=== PATIENT | male | born 1995 | race American Indian/Alaskan Native ===

== ENCOUNTER 2019-08-16 20:11 | Emergency (ER) | payer MEDICAID ==
[2019-08-16] MEDS ORDERED: SODIUM CHLORIDE 0.9% 1000 ML 1,000 ML IV ONE (20:39)
[2019-08-16] MEDS ORDERED: ONDANSETRON 4 MG/2 ML INJ IV ONE (20:39)
[2019-08-16] MEDS ORDERED: diphenhydrAMINE 50 MG/ML VIAL IV ONE (20:58)
[2019-08-16 21:03] LABS: Basophils % (Auto) 0.6 % (0.0-1.8); Eosinophils % (Auto) 0.2 % (0.0-4.3); Hematocrit 44.1 % (35.5-45.6); Hemoglobin 14.3 gm/dl (11.8-15.2); Lymphocytes # (Auto) 0.9 K/mm3 (1.2-5.4); Lymphocytes % (Auto) 13.5 % (13.4-35.0); Mean Corpuscular HGB Conc 33 % (32-34); Mean Corpuscular Volume 82 fl (84-94); Monocytes # (Auto) 0.9 K/mm3 (0.0-0.8); Monocytes % (Auto) 14.2 % (0.0-7.3); Platelet Count 257 K/mm3 (140-440); Red Blood Count 5.36 M/mm3 (3.65-5.03); Red Cell Distribution Width 15.7 % (13.2-15.2)
[2019-08-16 21:38] LABS: Alanine Aminotransferase 20 units/L (7-56); Albumin 4.9 g/dL (3.9-5); BUN/Creatinine Ratio 19; Blood Urea Nitrogen 21 mg/dL (9-20); Hemolysis Index 34
--- NOTE | 2019-08-16 21:46 | Emergency Department Report ---
ED General Adult HPI - General Chief complaint: Nausea/Vomiting/Diarrhea Stated complaint: N/V Time Seen by Provider: 08/16/19 20:32 Source: EMS Mode of arrival: Ambulatory Limitations: No Limitations - History of Present Illness Initial comments: Patient presents to the emergency department with a chief complaint of acute nausea and vomiting. Patient has autism and is nonverbal and not communicable. Per the [facility] staff the patient began to have some vomiting this evening. There has been no diarrhea. -: Sudden Severity scale (0 -10): 0 Consistency: constant Improves with: none Worsens with: none Associated Symptoms: denies other symptoms Treatments Prior to Arrival: none - Related Data Previous Rx's Medication Instructions Recorded Last Taken Type Ondansetron [Zofran Odt] 4 mg PO Q4HR PRN #20 tab.rapdis 08/16/19 Unknown Rx Allergies Allergy/AdvReac Type Severity Reaction Status Date / Time No Known Allergies Allergy Verified 08/16/19 20:38 ED Review of Systems ROS: Stated complaint: N/V Other details as noted in HPI Comment: Unobtainable due to pts medical conditions (Not able to assess due to the patient's pre-existing medical condition) ED Past Medical Hx - Past Medical History Previous Medical History?: Yes Additional medical history: Autism. Nonverbal - Surgical History Past Surgical History?: No - Social History Smoking Status: Never Smoker Substance Use Type: None - Medications Home Medications: Home Medications Medication Instructions Recorded Confirmed Last Taken Type Ondansetron [Zofran Odt] 4 mg PO Q4HR PRN #20 tab.rapdis 08/16/19 Unknown Rx ED Physical Exam - General Limitations: No Limitations General appearance: alert, in no apparent distress - Head Head exam: Present: atraumatic, normocephalic - Eye Eye exam: Present: normal appearance, PERRL, EOMI - ENT ENT exam: Present: mucous membranes moist - Neck Neck exam: Present: normal inspection - Respiratory Respiratory exam: Present: normal lung sounds bilaterally. Absent: respiratory distress - Cardiovascular Cardiovascular Exam: Present: normal rhythm, tachycardia. Absent: systolic murmur, diastolic murmur, rubs, gallop - GI/Abdominal GI/Abdominal exam: Present: soft, normal bowel sounds. Absent: distended, tenderness - Rectal Rectal exam: Present: deferred - Extremities Exam Extremities exam: Present: normal inspection - Back Exam Back exam: Present: normal inspection - Neurological Exam Neurological exam: Present: alert, CN II-XII intact. Absent: motor sensory deficit - Psychiatric Psychiatric exam: Present: normal affect, normal mood - Skin Skin exam: Present: warm, dry, intact, normal color. Absent: rash ED Course Vital Signs 08/16/19 08/16/19 08/16/19 20:32 20:33 21:51 Temperature 98.2 F 98.2 F Pulse Rate 114 H 114 H 114 H Respiratory 16 16 18 Rate Blood Pressure 117/76 117/76 Blood Pressure 109/65 [Right] O2 Sat by Pulse 97 97 97 Oximetry ED Medical Decision Making - Lab Data Result diagrams: 08/16/19 Unknown 08/16/19 Unknown Lab Results 08/16/19 08/16/19 Range/Units Unknown Unknown WBC 6.7 (4.5-11.0) K/mm3 RBC 5.36 H (3.65-5.03) M/mm3 Hgb 14.3 (11.8-15.2) gm/dl Hct 44.1 (35.5-45.6) % MCV 82 L (84-94) fl MCH 27 L (28-32) pg MCHC 33 (32-34) % RDW 15.7 H (13.2-15.2) % Plt Count 257 (140-440) K/mm3 Lymph % (Auto) 13.5 (13.4-35.0) % Divide % (Auto) 14.2 H (0.0-7.3) % Eos % (Auto) 0.2 (0.0-4.3) % Baso % (Auto) 0.6 (0.0-1.8) % Lymph # 0.9 L (1.2-5.4) K/mm3 Divide # 0.9 H (0.0-0.8) K/mm3 Eos # 0.0 (0.0-0.4) K/mm3 Baso # 0.0 (0.0-0.1) K/mm3 Seg Neutrophils % 71.5 H (40.0-70.0) % Seg Neutrophils # 4.8 (1.8-7.7) K/mm3 Sodium 143 (137-145) mmol/L Potassium 4.4 (3.6-5.0) mmol/L Chloride 98.9 (98-107) mmol/L Carbon Dioxide 28 (22-30) mmol/L Anion Gap 21 mmol/L BUN 21 H (9-20) mg/dL Creatinine 1.1 (0.8-1.5) mg/dL Estimated GFR > 60 ml/min BUN/Creatinine Ratio 19 % Glucose 103 H (75-100) mg/dL Calcium 10.0 (8.4-10.2) mg/dL Total Bilirubin 0.30 (0.1-1.2) mg/dL AST 24 (5-40) units/L ALT 20 (7-56) units/L Alkaline Phosphatase 80 (35-129) units/L Total Protein 9.1 H (6.3-8.2) g/dL Albumin 4.9 (3.9-5) g/dL Albumin/Globulin Ratio 1.2 % - Radiology Data Radiology results: image reviewed - Medical Decision Making IV fluids and IV Zofran given Critical care attestation.: If time is entered above; I have spent that time in minutes in the direct care of this critically ill patient, excluding procedure time. ED Disposition Clinical Impression: Nausea & vomiting Disposition: DC-01 TO HOME OR SELFCARE Is pt being admited?: No Does the pt Need Aspirin: No Condition: Stable Instructions: Acute Nausea and Vomiting (ED) Additional Instructions: return if worse Referrals: PRIMARY CARE, [Primary Care Provider] - 3-5 Days [facility] [Provider Group] - 3-5 Days [facility] [Provider Group] - 3-5 Days Time of Disposition: 22:14
[2019-08-16 21:52] VITALS: BP 109/65
--- NOTE | 2019-08-16 22:18 | XRay Report ---
ABDOMEN 2 VIEW(S) WITH CHEST RADIOGRAPH INDICATION / CLINICAL INFORMATION: abdominal pain. COMPARISON: None available. FINDINGS: TUBES / LINES: None. BOWEL GAS PATTERN: Gaseous distention of portions of the colon. No definite abnormal distention or di latation in the small bowel. Most of the bowel gas is to the left of midline. FREE AIR / EXTRALUMINAL GAS: None seen. LUNGS: Visualized lungs show no significant abnormality. IMPRESSION: No radiographic evidence to suggest obstruction. Predominance of bowel gas in the left upper quadrant is noted, a nonspecific finding. This could be due to paucity of gas in the intestines of the right side of the abdomen or mass effect shifting the intestines into the left midabdomen, such as from an underlying mass or fluid collection. If this is of clinical concern, further evaluation with a contra st-enhanced CT scan of the abdomen and pelvis would be appropriate. Signer Name: Mart Caballero MD Signed: 08/16/2019 10:13 PM Workstation Name: [id number]
== END 2019-08-16 22:25 | disposition home or self-care (01) ==
LOC: ED 20:11
DX: R11.2 Nausea with vomiting, unspecified (principal); F84.0 Autistic disorder; Z79.899 Other long term (current) drug therapy
CPT/HCPCS: 36415; 74022; 80053; 85025; 96361; 96374; 96375; 99284; J1200; J2405; J7030

== ENCOUNTER 2019-08-25 16:24 | Emergency (ER) | payer MEDICAID ==
[2019-08-25] MEDS ORDERED: ALPRAZolam 0.5 MG TAB PO ONE (17:23)
[2019-08-25] MEDS ORDERED: ONDANSETRON 4 MG ODT TAB PO ONE (17:23)
--- NOTE | 2019-08-25 17:25 | Emergency Department Report ---
ED General Adult HPI - General Chief complaint: Seizure Stated complaint: SEIZURE Time Seen by Provider: 08/25/19 17:10 Source: patient (History obtained from patient's legal caregivers), EMS ( EMS documentation not available at time of chart dictation ), RN notes reviewed, old records reviewed Mode of arrival: Stretcher Limitations: Other (Patient is developmentally delayed and nonverbal) - History of Present Illness Initial comments: The patient is a 23-year-old gentleman. He is not known to myself previously. He has a history of cerebral palsy, mild mental retardation, seizures, autism He currently takes clonazepam, as well as oxcarbazepine. He is accompanied by his legal guardians. Apparently, he had a seizure today. This was reportedly unprovoked. Prior to the seizure, the patient was in his usual state of health. As per his caregivers, he requires minimal assistance with activities of daily living, and has been in his usual state of health. Specifically, there is no fever, no cough, no urinary symptoms, and his last seizure was approximately 1 year ago. He apparently fell today and hit his face. After hitting his face, he had some bleeding, and threw up a little bit of blood. This has since resolved. The patient is at his mental status baseline as per his caregivers. His caregivers are not able to describe exacerb ating, relieving factors, qualitative nature of his symptoms. The patient is not able to describe these either. However, his caregivers indicate that he is back to his baseline. -: Sudden Consistency: now resolved Improves with: other Worsens with: other - Related Data Home Medications Medication Instructions Recorded Confirmed Last Taken Amitriptyline [Elavil] 25 mg PO QHS 08/25/19 08/25/19 Unknown Naltrexone HCl 50 mg PO DAILY 08/25/19 08/25/19 Unknown OXcarbazepine [Trileptal] 600 mg PO BID 08/25/19 08/25/19 Unknown clonazePAM [ Klonopin] 0.5 mg PO BID PRN 08/25/19 08/25/19 Unknown risperiDONE [RisperDAL] 1 mg PO BID 08/25/19 08/25/19 Unknown Previous Rx's Medication Instructions Recorded Last Taken Type Nitrofurantoin [place]/M-Cryst 100 mg PO Q12HR #14 capsule 08/25/19 Unknown Rx [Macrobid CAP] Allergies Allergy/AdvReac Type Severity Reaction Status Date / Time No Known Allergies Allergy Verified 08/16/19 20:38 ED Review of Systems ROS: Stated complaint: SEIZURE Other details as noted in HPI Constitutional: see HPI. denies: fever Eyes: denies: eye discharge ENT: denies: congestion Respiratory: denies: shortness of breath Cardiovascular: as per HPI Gastrointestinal: denies: diarrhea Genitourinary: denies: frequency Neurological: other (Breakthrough seizure) Hematological/Lymphatic: as per HPI ED Past Medical Hx - Past Medical History Hx Seizures: Yes Additional medical history: Autism--Nonverbal, cerebral palsy, mild mental retardation, bowel and bladder incontinence - Surgical History Past Surgical History?: No - Social History Smoking Status: Unknown if ever smoked - Medications Home Medications: Home Medications Medication Instructions Recorded Confirmed Last Taken Type Amitriptyline [Elavil] 25 mg PO QHS 08/25/19 08/25/19 Unknown History Naltrexone HCl 50 mg PO DAILY 08/25/19 08/25/19 Unknown History Nitrofurantoin [place]/M-Cryst 100 mg PO Q12HR #14 capsule 08/25/19 Unknown Rx [Macrobid CAP] OXcarbazepine [Trileptal] 600 mg PO BID 08/25/19 08/25/19 Unknown History clonazePAM [ Klonopin] 0.5 mg PO BID PRN 08/25/19 08/25/19 Unknown History risperiDONE [RisperDAL] 1 mg PO BID 08/25/19 08/25/19 Unknown History ED Physical Exam - General Limitations: Other (The patient is nonverbal. The patient is awake. The patient is moving 4 extremities spontaneously.) General appearance: in no apparent distress - Head Head exam: Present: atraumatic, normocephalic - Eye Eye exam: Present: normal appearance, PERRL, EOMI - ENT ENT exam: Present: normal exam, normal orophraynx, mucous membranes moist, TM's normal bilaterally, normal external ear exam - Neck Neck exam: Present: normal inspection, full ROM. Absent: tenderness, meningismus - Respiratory Respiratory exam: Present: normal lung sounds bilaterally. Absent: respiratory distress - Cardiovascular Cardiovascular Exam: Present: regular rate, normal rhythm, normal heart sounds. Absent: bradycardia, tachycardia, irregular rhythm, systolic murmur, diastolic murmur, rubs, gallop - GI/Abdominal GI/Abdominal exam: Present: soft, normal bowel sounds. Absent: distended, tenderness, rebound, rigid, pulsatile mass - Rectal Rectal exam: Present: deferred - Extremities Exam Extremities exam: Present: normal inspection, full ROM, other (2+ pulses noted in the bilateral upper and lower extremities. There is no palpable cord. negative Homans sign. Muscular compartments are soft. The pelvis is stable.). Absent: pedal edema, calf tenderness - Back Exam Back exam: Present: normal inspection, full ROM. Absent: tenderness, CVA tenderness (R), CVA tenderness (L), paraspinal tenderness, vertebral tenderness - Neurological Exam Neurological exam: Present: alert, other (Reproducible right-sided paralumbar tenderness right-sided reproducible paralumbar tenderness patient initially not in any respiratory distress, the patient is awake. He is moving 4 extremities spontaneously. There is no facial droop. Extraocular movements appear to be intact bilaterally. Unable to assess sensation, or perform detailed neurologic examination as the patient will not speak.) - Skin Skin exam: Present: warm, dry, intact, normal color. Absent: rash ED Course Vital Signs 08/25/19 08/25/19 08/25/19 16:35 19:18 19:23 Temperature 97.9 F Pulse Rate 121 H 97 H Respiratory 20 16 16 Rate Blood Pressure 117/70 Blood Pressure 126/86 [Left] O2 Sat by Pulse 98 98 Oximetry - Reevaluation(s) Reevaluation #1: 08/25/19 18:13 Differential diagnosis, including but not limited to: Breakthrough seizure, urin grover tract infection, intracranial injury, cervical spine injury, facial injury Assessment and plan: 23-year-old gentleman status post reported and resolved witnessed seizure, with resolved tachycardia, who is afebrile, with otherwise reassuring vital signs, who does not appear to be in any acute distress, who is moving 4 extremities. Has minimal nasal contusion at this time. Given his underlying neurologic comorbidities, and inability to perform a complete/thorough neurologic examination, CT scan of the brain and cervical spine will be obtained. Urinalysis, basic laboratory studies ordered. Patient resting comfortably 4 hours, without clinical deterioration Reevaluation #2: 08/25/19 19:28 Tachycardia resolved. Laboratory studies reviewed and appreciated. CT scan of the brain and cervical spine reviewed and appreciated. Urinalysis reviewed and appreciated. Patient has been observed in this department for hours without clinical decompensation. He has not had any additional seizures or convulsions. We will treat empirically with Macrobid given his urinalysis, he will need to follow-up with his outpatient primary care doctor or neurologist. Return precautions are reviewed the patient's caregivers. ED Medical Decision Making - Lab Data Result diagrams: 08/25/19 17:30 08/25/19 17:30 Vital Signs 08/25/19 16:35 Temperature 97.9 F Pulse Rate 121 H Respiratory 20 Rate Blood Pressure 117/70 O2 Sat by Pulse 98 Oximetry Lab Results 08/25/19 08/25/19 08/25/19 Range/Units 17:30 17:30 17:30 Hgb 12.4 (11.8-15.2) gm/dl Hct 38.0 (35.5-45.6) % Plt Count 226 (140-440) K/mm3 PT 12.9 (12.2-14.9) Sec. INR 0.96 (0.87-1.13) Sodium 142 (137-145) mmol/L Potassium 3.6 (3.6-5.0) mmol/L Chloride 102.0 (98-107) mmol/L Carbon Dioxide 30 (22-30) mmol/L Anion Gap 14 mmol/L BUN 15 (9-20) mg/dL Creatinine 1.0 (0.8-1.5) mg/dL Estimated GFR > 60 ml/min BUN/Creatinine Ratio 15 % Glucose 94 (75-100) mg/dL Calcium 9.2 (8.4-10.2) mg/dL Magnesium 1.80 (1.7-2.3) mg/dL Total Bilirubin < 0.20 (0.1-1.2) mg/dL AST 13 (5-40) units/L ALT 9 (7-56) units/L Alkaline Phosphatase 71 (35-129) units/L Total Creatine Kinase 122 (55-170) units/L Total Protein 7.7 (6.3-8.2) g/dL Albumin 4.4 (3.9-5) g/dL Albumin/Globulin Ratio 1.3 % - EKG Data -: EKG Interpreted by [facility] EKG shows normal: sinus rhythm Rate: normal - EKG Data When compared to previous EKG there are: previous EKG unavailable 08/25/19 18:15 Sinus rhythm, 96 bpm, normal axis, high left ventricular voltage, QTC 443 ms. The EKG is not consistent with ST elevation myocardial infarction. - Radiology Data Radiology results: pending, report reviewed, image reviewed Print Report Referring Physician: RAFAT STEWART Patient Name: ROMERO HICKEY Date of : 1995 Sex: Male Report Date: 2019-08-25 Report Status: Finalized Findings [facility] [address] [place] [address] Cat Scan Report Signed Patient: ROMERO HICKEY MR#: [id number] : 1995 Acct:[id number] Age/Sex: 23 / M ADM Date: 08/25/19 Loc: ED Attending Dr: Ordering Physician: RAFAT STEWART MD Date of Service: 08/25/19 Procedure(s): CT head/brain wo con Accession Number(s): [id number] cc: RAFAT STEWART MD CT head/brain wo con INDICATION / CLINICAL INFORMATION: 23 years Male; sz, closed head injury. TECHNIQUE: Routine CT head without contrast. All CT scans at this location are performed using CT dose reduction for ALARA by means of automated exposure control. COMPARISON: None. FINDINGS: BRAIN / INTRACRANIAL CONTENTS: The motion and beam hardening degrade the image quality at. However, the brain appears to demonstrate appropriate attenuation. Findings are most consistent with prominent perivascular spaces along the inferior basal ganglia. There is no definitive CT evidence of acute intracranial hemorrhage or significant mass effect. There is developmental cavum septum vergae as well as cavum vellum interpositum. The ventricular system otherwise appears appropriate in size. ORBITS: No significant abnormality of visualized orbits. SINUSES / MASTOIDS: No significant abnormality the visualized paranasal sinuses or mastoid air cells. CRANIOCERVICAL JUNCTION: No significant abnormality. ADDITIONAL FINDINGS: None. IMPRESSION: 1. The motion degrades the image quality. However, there is no definitive CT evidence of acute intracranial process. Signer Name: Rafat Gant MD Signed: 08/25/2019 7:12 PM Workstation Name: [id number] Transcribed By: MR Dictated By: Rafat Gant MD Electronically Authenticated By: Rafat Gant MD Signed Date/Time: 08/25/191911 DD/ 06 Print Report Referring Physician: RAFAT STEWART Patient Name: ROMERO HICKEY Date of : 1995 Sex: Male Report Date: 2019-08-25 Report Status: Finalized Findings [facility] [address] [place] [address] Cat Scan Report Signed Patient: ROMERO HICKEY MR#: [id number] : 1995 Acct:[id number] Age/Sex: 23 / M ADM Date: 08/25/19 Loc: ED Attending Dr: Ordering Physician: RAFAT STEWART MD Date of Service: 08/25/19 Procedure(s): CT cervical spine wo con Accession Number(s): [id number] cc: RAFAT STEWART MD CT cervical spine wo con INDICATION / CLINICAL INFORMATION: 23 years Male; sz, closed head injury. TECHNIQUE: Axial CT images of the cervical spine were obtained. Sagittal and coronal reformatted images were produced. All CT scans at this location are performed using CT dose reduction for ALARA by means of automated exposure control. COMPARISON: None available. FINDINGS: POST-SURGICAL CHANGES: None. ALIGNMENT: There is mild curvature of the cervical spine, convex toward the left as well as mild reversal of the cervical lordosis at. There is mild rotation at C1-L2 which may be a positional. 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 However, there is no definitive CT evidence of acute fracture involving the cervical spine. INTRAVERTEBRAL DISCS: The right facet joint hypertrophy at C2-3 results in mild right neural foraminal narrowing. There is no significant bony of spinal stenosis involving the cervical segments. PARASPINAL SOFT TISSUES: The motion degrades image quality. However, no definitive prevertebral soft tissue fluid collections are appreciated at. ADDIT IONAL FINDINGS: None. IMPRESSION: 1. There is milder curvature of the cervical spine and partial of the cervical lordosis as described without clear CT evidence of acute fracture. 2. 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 Signer Name: Rafat Gant MD Signed: 08/25/2019 7:19 PM Workstation Name: [id number] Transcribed By: MR Dictated By: Rafat Gant MD Electronically Authenticated By: Rafat Gant MD Signed Date/Time: 08/25/191918 Critical care attestation.: If time is entered above; I have spent that time in minutes in the direct care of this critically ill patient, excluding procedure time. ED Disposition Clinical Impression: History of seizure Disposition: DC-01 TO HOME OR SELFCARE Is pt being admited?: No Does the pt Need Aspirin: No Condition: Stable Additional Instructions: Please continue outpatient medications. Avoid consumption of alcohol. The patient should not drive or operate motor vehicles indefinitely. Take the antibiotics as directed. Follow-up with your primary care doctor or neurologist within the next 7 to 10 days. Return to the emergency room right away with new, worsened or different symptoms, or symptoms not present on the initial emergency room evaluation. Referrals: FLORECITA PENDLETON MD [Primary Care Provider] - 3-5 Days OWEN WILLIS MD [Staff Physician] - 3-5 Days VIC DE LA ROSA MD [Referring] - 3-5 Days
[2019-08-25 17:41] LABS: Hemoglobin 12.4 gm/dl (11.8-15.2)
[2019-08-25 17:52] LABS: Alanine Aminotransferase 9 units/L (7-56); Albumin 4.4 g/dL (3.9-5); BUN/Creatinine Ratio 15; Blood Urea Nitrogen 15 mg/dL (9-20); Calcium 9.2 mg/dL (8.4-10.2); Hemolysis Index 1; INR 0.96 (0.87-1.13)
--- NOTE | 2019-08-25 19:16 | Cat Scan Report ---
CT head/brain wo con INDICATION / CLINICAL INFORMATION: 23 years Male; sz, closed head injury. TECHNIQUE: Routine CT head without contrast. All CT scans at this location are performed using CT dos e reduction for ALARA by means of automated exposure control. COMPARISON: None. FINDINGS: BRAIN / INTRACRANIAL CONTENTS: The motion and beam hardening degrade the image quality at. However, t he brain appears to demonstrate appropriate attenuation. Findings are most consistent with prominent perivascular spaces along the inferior basal ganglia. There is no definitive CT evidence of acute int racranial hemorrhage or significant mass effect. There is developmental cavum septum vergae as well as cavum vellum interpositum. The ventricular syst em otherwise appears appropriate in size. ORBITS: No significant abnormality of visualized orbits. SINUSES / MASTOIDS: No significant abnormality the visualized paranasal sinuses or mastoid air cells. CRANIOCERVICAL JUNCTION: No significant abnormality. ADDITIONAL FINDINGS: None. IMPRESSION: 1. The motion degrades the image quality. However, there is no definitive CT evidence of acute intrac ranial process. Signer Name: Rafat Gant MD Signed: 08/25/2019 7:12 PM Workstation Name: [id number]
[2019-08-25 19:23] VITALS: BP 126/86
[2019-08-25 19:24] LABS: Bacteria,Urine 1+ /HPF (Negative); Bilirubin,Urine NEG (Negative); Blood,Urine NEG (Negative); Color,Urine Yellow (Yellow); Mucus,Urine FEW /HPF; Urobilinogen,Urine < 2.0 mg/dL (<2.0)
--- NOTE | 2019-08-25 19:24 | Cat Scan Report ---
CT cervical spine wo con INDICATION / CLINICAL INFORMATION: 23 years Male; sz, closed head injury. TECHNIQUE: Axial CT images of the cervical spine were obtained. Sagittal and coronal reformatted images were pr oduced. All CT scans at this location are performed using CT dose reduction for ALARA by means of aut omated exposure control. COMPARISON: None available. FINDINGS: POST-SURGICAL CHANGES: None. ALIGNMENT: There is mild curvature of the cervical spine, convex toward the left as well as mild reve rsal of the cervical lordosis at. There is mild rotation at C1-L2 which may be a positional. 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 However, there is no definitive CT evidence of acute fracture involving the cervical spine. INTRAVERTEBRAL DISCS: The right facet joint hypertrophy at C2-3 results in mild right neural foramina l narrowing. There is no significant bony of spinal stenosis involving the cervical segments. PARASPINAL SOFT TISSUES: The motion degrades image quality. However, no definitive prevertebral soft tissue fluid collections are appreciated at. ADDITIONAL FINDINGS: None. IMPRESSION: 1. There is milder curvature of the cervical spine and partial of the cervical lordosis as described without clear CT evidence of acute fracture. 2. 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 Signer Name: Rafat Gant MD Signed: 08/25/2019 7:19 PM Workstation Name: [id number]
== END 2019-08-25 20:05 | disposition home or self-care (01) ==
LOC: ED 16:24
DX: R56.9 Unspecified convulsions (principal); Z79.899 Other long term (current) drug therapy
CPT/HCPCS: 36415; 70450; 72125; 80053; 81001; 82550; 83735; 85014; 85018; 85049; 85610; 93005; 93010; Q0162

== ENCOUNTER 2020-01-23 23:39 | Emergency (ER) | payer MEDICAID ==
[2020-01-24] MEDS ORDERED: diphenhydrAMINE 50 MG/ML VIAL IV ONE (00:43)
[2020-01-24] MEDS ORDERED: SODIUM CHLORIDE 0.9% 1000 ML 1,000 ML IV ONE ×2 (00:43→03:59)
[2020-01-24] MEDS ORDERED: LACTULOSE 20 GM/30 ML ORAL LIQD PO ONE (00:43)
--- NOTE | 2020-01-24 01:00 | Emergency Department Report ---
HPI - General Chief Complaint: Abdominal Pain Time Seen by Provider: 01/24/20 00:40 - HPI HPI: Room 25 The patient is a 24-year-old male with a history of autism present with a chief complaint of constipation. [facility] from the [facility] living and reportedly has not had a bowel movement for 3 days. There is been no history of nausea or vomiting. The patient is nonverbal has a history of cerebral palsy and autism. ED Past Medical Hx - Past Medical History Hx Seizures: Yes Additional medical history: Autism--Nonverbal, cerebral palsy, mild mental re tardation, bowel and bladder incontinence - Family History Family history: no significant - Social History Smoking Status: Unknown if ever smoked Substance Use Type: None - Medications Home Medications: Home Medications Medication Instructions Recorded Confirmed Last Taken Type Amitriptyline [Elavil] 25 mg PO QHS 08/25/19 01/24/20 Unknown History Naltrexone HCl 50 mg PO DAILY 08/25/19 01/24/20 Unknown History OXcarbazepine [Trileptal] 600 mg PO BID 08/25/19 01/24/20 Unknown History clonazePAM [ Klonopin] 0.5 mg PO BID PRN 08/25/19 01/24/20 Unknown History risperiDONE [RisperDAL] 1 mg PO BID 08/25/19 01/24/20 Unknown History Docusate Sodium [Colace] 100 mg PO BID #90 capsule 01/24/20 Unknown Rx Hyoscyamine Sulfate [Hyoscyamine 0.125 mg PO DAILY 01/24/20 01/24/20 Unknown History Rapdis 0.125 mg] LORazepam [Lorazepam] 1 mg PO BID 01/24/20 01/24/20 Unknown History [id number]/Sod Sulf,Bicarb,Cl/KCl 4,000 ml PO ONCE PRN #4000 01/24/20 Unknown Rx [Golytely Solution] soln.[email or web address] ED Review of Systems ROS: Stated complaint: CONSTIPATION Other details as noted in HPI Comment: Unobtainable due to pts medical conditions Physical Exam - Physical Exam Vital Signs: Vital Signs 01/24/20 00:42 Temperature 97.8 F Pulse Rate 125 H Respiratory 16 Rate Blood Pressure 92/53 [Left] O2 Sat by Pulse 100 Oximetry Physical Exam: GENERAL: The patient is a male with developmental delay cerebral palsy lying on the stretcher crying. Patient is consolable HEENT: Normocephalic. Atraumatic. Extraocular motions are intact. Patient has moist mucous membranes. NECK: Supple. Trachea midline CHEST/LUNGS: Clear to auscultation. There is no respiratory distress noted. HEART/CARDIOVASCULAR: Regular. There is tachycardia. There is no gallop rub or murmur. ABDOMEN: Abdomen is soft, nontender. Patient has normal bowel sounds. There is no abdominal distention. SKIN: There is no rash. There is no edema. There is no diaphoresis. NEURO: The patient is awake. Patient nonverbal MUSCULOSKELETAL: There is no evidence of acute injury ED Course Vital Signs 01/24/20 00:42 Temperature 97.8 F Pulse Rate 125 H Respiratory 16 Rate Blood Pressure 92/53 [Left] O2 Sat by Pulse 100 Oximetry ED Medical Decision Making - Lab Data Result diagrams: 01/24/20 00:59 01/24/20 00:59 - Radiology Data Radiology results: report reviewed (2 view abdominal x-ray), image reviewed (2 view abdominal x-ray) interpreted by me: 2 view abdominal [id number] evident in the right abdomen. No free air. No evidence of obstruction Findings [facility] [address] [place] [address] XRay Report Signed Patient: RUPERTO HOFFMANN MR#: [id number] : 1995 Acct:[id number] Age/Sex: 24 / M ADM Date: 01/23/20 Loc: ED Attending Dr: Ordering Physician: CECILY AMEZCUA MD Date of Service: 01/24/20 Procedure(s): XR abdomen 2V Accession Number(s): [id number] cc: CECILY AMEZCUA MD Fluoro Time In Minutes: ABDOMEN FLAT AND UPRIGHT PORTABLE 0225 INDICATION: Constipation COMPARISON: 08/16/2019 FINDINGS: No pneumoperitoneum is seen. Prominent stool is seen in the right colon consistent with constipation. There is gaseous distention of the remainder of the colon to the sigmoid area. General pattern is similar to the prior study though mildly more distended. Probably this is a chronic process. I do not see convincing evidence of bowel obstruction. No obvious urinary tract calculi are seen. Signer Name: Krish Aguilera MD Signed: 01/24/2020 3:24 AM Workstation Name: [id number] Transcribed By: GJ Dictated By: Krish Aguilera MD Electronically Authenticated By: Krish Aguilera MD Signed Date/Time: 01/24/20323 DD/ 4 TD/TT: - Differential Diagnosis Constipation Critical care attestation.: If time is entered above; I have spent that time in minutes in the direct care of this critically ill patient, excluding procedure time. ED Disposition Clinical Impression: Constipation Disposition: DC-01 TO HOME OR SELFCARE Is pt being admited?: No Does the pt Need Aspirin: No Condition: Stable Instructions: Constipation (ED) Additional Instructions: Return to the emergency department should you develop worsening symptoms, inability to tolerate food or liquids, high fever or any other concerns Prescriptions: Docusate Sodium [Colace] 100 mg PO BID #90 capsule [id number]/Sod Sulf,Bicarb,Cl/KCl [Golytely Solution] 4,000 ml PO ONCE PRN #4000 soln.recon PRN Reason: Constipation Referrals: DR FELA [Other] - 3-5 Days MARY COLLIER MD [Staff Physician] - 3-5 Days (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 Please follow-up with him for further evaluation) Time of Disposition: 04:20
[2020-01-24 01:11] LABS: Basophils % (Auto) 0.9 % (0.0-1.8); Eosinophils # (Auto) 0.1 K/mm3 (0.0-0.4); Eosinophils % (Auto) 1.7 % (0.0-4.3); Hematocrit 38.1 % (35.5-45.6); Hemoglobin 12.5 gm/dl (11.8-15.2); Lymphocytes % (Auto) 29.4 % (13.4-35.0); Mean Corpuscular HGB Conc 33 % (32-34); Mean Corpuscular Volume 86 fl (84-94); Monocytes # (Auto) 0.5 K/mm3 (0.0-0.8); Monocytes % (Auto) 13.1 % (0.0-7.3); Platelet Count 200 K/mm3 (140-440); Red Blood Count 4.45 M/mm3 (3.65-5.03); Red Cell Distribution Width 15.8 % (13.2-15.2)
[2020-01-24 01:31] LABS: Alanine Aminotransferase 13 units/L (7-56); Albumin 4.2 g/dL (3.9-5); BUN/Creatinine Ratio 11; Blood Urea Nitrogen 11 mg/dL (9-20); Calcium 8.7 mg/dL (8.4-10.2); Hemolysis Index 109
--- NOTE | 2020-01-24 03:29 | XRay Report ---
ABDOMEN FLAT AND UPRIGHT PORTABLE 0225 INDICATION: Constipation COMPARISON: 08/16/2019 FINDINGS: No pneumoperitoneum is seen. Prominent stool is seen in the right colon consistent with con stipation. There is gaseous distention of the remainder of the colon to the sigmoid area. General pat tern is similar to the prior study though mildly more distended. Probably this is a chronic process. I do not see convincing evidence of bowel obstruction. No obvious urinary tract calculi are seen. Signer Name: Krish Aguilera MD Signed: 01/24/2020 3:24 AM Workstation Name: [id number]
[2020-01-24 05:01] VITALS: BP 114/77
== END 2020-01-24 06:33 | disposition home or self-care (01) ==
LOC: ED 23:39
DX: K59.00 Constipation, unspecified (principal); F84.0 Autistic disorder; Z79.899 Other long term (current) drug therapy
CPT/HCPCS: 36415; 74019; 80053; 83690; 85025; 96361; 96374; 99284; J1200; J7030